=== PATIENT | female | born 1980 | race Caucasian/White ===

== ENCOUNTER 2018-03-16 14:58 | Emergency (ER) | payer OTHER ==
[2018-03-16] MEDS ORDERED: Sodium Chloride 0.9% 1,000 ML IV ONE (15:28)
[2018-03-16] MEDS ORDERED: Iopamidol 612 MG/ML 150 ML Bottle IVPUSH ONE (15:33)
[2018-03-16] MEDS ORDERED: Diatrizoate Meglumine/Diatrizoate Sodium 37% 120 ML Bottle PO ONE (15:33)
[2018-03-16] MEDS ORDERED: Sodium Chloride 0.9% 10 ML Syringe FLUSH ONE (15:33)
--- NOTE | 2018-03-16 15:36 | EDM.PDOC ---
ED HPI GENERAL MEDICAL PROBLEM - General Chief Complaint: Abdominal Pain Stated Complaint: ABDOMINAL PAIN Time Seen by Provider: 03/16/18 15:04 Source of Information: Reports: Patient History Limitations: Reports: No Limitations - History of Present Illness INITIAL COMMENTS - FREE TEXT/NARRATIVE: Patient is a 37-year-old patient from [facility] who presents to the ED complaining of right lower quadrant abdominal pain. Pain did start approximately 2 weeks and has progressively gotten worse. She's felt feverish, has had a poor appetite, and questions if this is not related to diverticulitis and/or appendicitis. 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 She has a history of diverticulitis that required resection of 10 inches of the sigmoid colon November 2016. She states she had similar symptoms at that point as well. She states there is no blood within her stool only with wiping. She states her rectum is quite sore due to excessive wiping. She's had a tubal ligation with no additional abdominal surgeries. Last menstrual cycle was 2.5 weeks ago. She has no history of kidney stones and/or ovarian cyst. She does have a history of STDs consisting of gonorrhea/chlamydia. She had gonorrhea upon admission to senior care. She was treated. She is not sexually active. She denies any abnormal vaginal discharge and/or bleeding. She has been taking Tylenol for discomfort. She placed herself on a clear liquid liquid diet with onset of symptoms. States the symptoms have progressively gotten worse over the past 2 days. She has a history of anxiety, GERD, diverticuli with diverticulitis. She's currently on no medications. She has a previous history of heavy alcohol use, narcotic use, smoking, and recreational drug use. 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 [No Known Home Meds] 03/16/18 [History] Past Medical History Gastrointestinal History: Reports: Diverticulosis Psychiatric History: Reports: Addiction, Anxiety, Depression Other Psychiatric History: substance abuse-alcohol and drugs - Past Surgical History HEENT Surgical History: Reports: Oral Surgery Female Surgical History: Reports: Tubal Ligation Social & Family History - Tobacco Use Smoking Status *Q: Former Smoker Used Tobacco, but Quit: Yes Month/Year Tobacco Last Used: 2 months ago - Caffeine Use Caffeine Use: Reports: Coffee, Soda, Tea - Recreational Drug Use Recreational Drug Use: Yes Other Recreational Drug Type: last used drugs in 1.5 yrs ago ED ROS GENERAL - Review of Systems Review Of Systems: See Below Constitutional: Reports: Fever, Chills, Malaise, Weakness, Decreased Appetite HEENT: Reports: No Symptoms Respiratory: Reports: No Symptoms Cardiovascular: Reports: No Symptoms GI/Abdominal: Reports: Abdominal Pain (Right lower quadrant), Constipation, Decreased Appetite, Flatus, Nausea. Denies: Black Stool, Bloody Stool, Diarrhea (Loose stools), Distension, Hematemesis, Hematochezia, Melena, Vomiting : Reports: No Symptoms Musculoskeletal: Reports: No Symptoms Neurological: Reports: No Symptoms ED EXAM, GI/ABD - Physical Exam Exam: See Below Exam Limited By: No Limitations General Appearance: Alert, WD/WN, No Apparent Distress Ears: Hearing Grossly Normal Nose: Normal Inspection Throat/Mouth: Normal Voice, No Airway Compromise Neck: Normal Inspection, Supple Respiratory/Chest: No Respiratory Distress, Lungs Clear, Normal Breath Sounds, No Accessory Muscle Use, Chest Non-Tender Cardiovascular: Normal Peripheral Pulses, Regular Rate, Rhythm GI/Abdominal Exam: Normal Bowel Sounds, Soft, No Organomegaly, No Distention, Tender (McBurney's point) (Female) Exam: Deferred. No: Vaginal Discharge Rectal (Female) Exam: Deferred, Other (Per patient pain to the rectum secondary to excessive wiping.) Back Exam: No: CVA Tenderness (L), CVA Tenderness (R) Neurological: Alert, Oriented, Normal Cognition, No Motor/Sensory Deficits Psychiatric: Normal Affect, Normal Mood Skin Exam: Warm, Dry, Intact, Normal Color, No Rash Course - Vital Signs Last Recorded V/S: Last Vital Signs Temp 98.6 F 03/16/18 15:04 Pulse 71 03/16/18 15:04 Resp 20 03/16/18 15:04 BP 172/89 H 03/16/18 15:04 Pulse Ox 99 03/16/18 15:04 - Orders/Labs/Meds Orders: Active Orders 24 hr Category Date Time Status Peripheral IV Care [RC] . DIRECTED Care 03/16/18 15:28 Active Abdomen Pelvis w Cont [CT] Stat Exams 03/16/18 15:28 Taken UA W/MICROSCOPIC [URIN] Stat Lab 03/16/18 15:33 Ordered Peripheral IV Insertion Adult [OM.PC] Routine Oth 03/16/18 15:28 Ordered Labs: Laboratory Tests 03/16/18 03/16/18 03/16/18 Range/Units 15:33 15:40 15:40 WBC 9.74 (3.98-10.04) K/mm3 RBC 4.78 (3.98-5.22) M/mm3 Hgb 14.4 (11.2-15.7) gm/L Hct 42.3 (34.1-44.9) % MCV 88.5 (79.4-94.8) fl MCH 30.1 (25.6-32.2) pg MCHC 34.0 (32.2-35.5) g/dl RDW Std Deviation 39.8 (36.4-46.3) fL Plt Count 278 (182-369) K/mm3 MPV 9.8 (9.4-12.3) fl Neutrophils % (Manual) 60 (40-60) % Band Neutrophils % 0 (0-10) % Lymphocytes % (Manual) 33 (20-40) % Atypical Lymphs % 0 % Monocytes % (Manual) 7 (2-10) % Eosinophils % (Manual) 0 L (0.7-5.8) % Basophils % (Manual) 0 L (0.1-1.2) Platelet Estimate Adequate Plt Morphology Comment Normal RBC Morph Comment Normal Sodium 137 (136-145) mEq/L Potassium 4.1 (3.5-5.1) mEq/L Chloride 103 (98-107) mEq/L Carbon Dioxide 28 (21-32) mEq/L Anion Gap 10.1 (5-15) BUN 9 (7-18) mg/dL Creatinine 0.9 (0.55-1.02) mg/dL Est Cr Clr Drug Dosing 70.80 mL/min Estimated GFR (MDRD) > 60 (>60) mL/min BUN/Creatinine Ratio 10.0 L (14-18) Glucose 78 (74-106) mg/dL Calcium 9.2 (8.5-10.1) mg/dL Total Bilirubin 0.6 (0.2-1.0) mg/dL AST 14 L (15-37) U/L ALT 20 (14-59) U/L Alkaline Phosphatase 38 L (46-116) U/L C-Reactive Protein < 0.2 (<1.0) mg/dL Total Protein 8.1 (6.4-8.2) g/dl Albumin 4.4 (3.4-5.0) g/dl Globulin 3.7 gm/dL Albumin/Globulin Ratio 1.2 (1-2) HCG, Qual (NEGATIVE) Urine Color Light yellow (Yellow) Urine Appearance Clear (Clear) Urine pH 7.5 (5.0-8.0) Ur Specific [place] 1.020 (1.005-1.030) Urine Protein Negative (Negative) Urine Glucose (UA) Negative (Negative) Urine Ketones Negative (Negative) Urine Occult Blood Negative (Negative) Urine Nitrite Negative (Negative) Urine Bilirubin Negative (Negative) Urine Urobilinogen 0.2 (0.2-1.0) Ur Leukocyte Esterase Negative (Negative) Urine RBC Not seen (0-5) /hpf Urine WBC 0-5 (0-5) /hpf Ur Epithelial Cells 0-5 (0-5) /hpf Urine Bacteria Not seen (FEW) /hpf Urine Mucus Not seen (FEW) /hpf 03/16/18 Range/Units 15:40 WBC (3.98-10.04) K/mm3 RBC (3.98-5.22) M/mm3 Hgb (11.2-15.7) gm/L Hct (34.1-44.9) % MCV (79.4-94.8) fl MCH (25.6-32.2) pg MCHC (32.2-35.5) g/dl RDW Std Deviation (36.4-46.3) fL Plt Count (182-369) K/mm3 MPV (9.4-12.3) fl Neutrophils % (Manual) (40-60) % Band Neutrophils % (0-10) % Lymphocytes % (Manual) (20-40) % Atypical Lymphs % % Monocytes % (Manual) (2-10) % Eosinophils % (Manual) (0.7-5.8) % Basophils % (Manual) (0.1-1.2) Platelet Estimate Plt Morphology Comment RBC Morph Comment Sodium (136-145) mEq/L Potassium (3.5-5.1) mEq/L Chloride (98-107) mEq/L Carbon Dioxide (21-32) mEq/L Anion Gap (5-15) BUN (7-18) mg/dL Creatinine (0.55-1.02) mg/dL Est Cr Clr Drug Dosing mL/min Estimated GFR (MDRD) (>60) mL/min BUN/Creatinine Ratio (14-18) Glucose (74-106) mg/dL Calcium (8.5-10.1) mg/dL Total Bilirubin (0.2-1.0) mg/dL AST (15-37) U/L ALT (14-59) U/L Alkaline Phosphatase (46-116) U/L C-Reactive Protein (<1.0) mg/dL Total Protein (6.4-8.2) g/dl Albumin (3.4-5.0) g/dl Globulin gm/dL Albumin/Globulin Ratio (1-2) HCG, Qual Negative (NEGATIVE) Urine Color (Yellow) Urine Appearance (Clear) Urine pH (5.0-8.0) Ur Specific [place] (1.005-1.030) Urine Protein (Negative) Urine Glucose (UA) (Negative) Urine Ketones (Negative) Urine Occult Blood (Negative) Urine Nitrite (Negative) Urine Bilirubin (Negative) Urine Urobilinogen (0.2-1.0) Ur Leukocyte Esterase (Negative) Urine RBC (0-5) /hpf Urine WBC (0-5) /hpf Ur Epithelial Cells (0-5) /hpf Urine Bacteria (FEW) /hpf Urine Mucus (FEW) /hpf Meds: Medications Discontinued Medications Generic Name Dose Route Start Last Admin Trade Name Freq PRN Reason Stop Dose Admin Diatrizoate Meglum/Diatrizoate Sod 90 ml 03/16/18 15:33 03/16/18 16:53 Gastrografin 37% PO 03/16/18 15:34 90 ml ONETIME ONE Administration Sodium Chloride 1,000 mls @ 250 mls/hr 03/16/18 15:28 03/16/18 15:40 Normal Saline IV 03/16/18 19:27 250 mls/hr ONETIME ONE Administration Ibuprofen 600 mg 03/16/18 17:48 03/16/18 17:52 Motrin PO 03/16/18 17:49 600 mg ONETIME ONE Administration Iopamidol 125 ml 03/16/18 15:33 03/16/18 16:53 Isovue-300 (61%) IVPUSH 03/16/18 15:34 125 ml ONETIME ONE Administration Sodium Chloride 10 ml 03/16/18 15:28 03/16/18 16:53 Saline Flush FLUSH 10 ml ASDIRECTED PRN Administration Keep Vein Open Sodium Chloride 10 ml 03/16/18 15:33 03/16/18 15:40 Saline Flush FLUSH 03/16/18 15:34 10 ml ONETIME ONE Administration - Re-Assessments/Exams Free Text/Narrative Re-Assessment/Exam: IV established with normal saline 250 mL per hour. Initial labs and studies ordered include: CBC, chem 14, CRP, UA, and hCG. I have ordered a CT of the abdomen and pelvis with IV and oral contrast. Patient has a history of diverticulitis to the sigmoid colon with resection. She states current symptoms are similar although the pain is located to the right side. Will rule out appendicitis. In addition she has no history of ovarian cyst and/ or kidney stones. 03/16/18 16:25 Labs reviewed: CBC essentially normal. CMP essentially normal. CRP <0.2. HCG Negative. UA negative. 03/16/18 17:46 CT abdomen and pelvis with IV/oral contrast impression: 2 cm corpus luteal cyst of the right ovary. Will discharge patient home with instructions as documented. Departure - Departure Time of Disposition: 17:50 Disposition: Home, Self-Care 01 Condition: Good Clinical Impression: Corpus luteum cyst of right ovary, Rectum pain - Discharge Information Instructions: Abdominal Pain, Adult, [id number], Ovarian Cyst, [id number] Referrals: Ludy Glez PA-C [Primary Care Provider] - Forms: ED Department Discharge Additional Instructions: CBC, chem Panel, CRP, and UA were essentially normal. CT of the abdomen and pelvis revealed a 2 cm corpus luteal cyst of the right ovary. Treatment will be Tylenol and ibuprofen in alternating fashion for pain. Follow-up with [facility] specialist the pain persist. Return to ED if patient develops any new or worsening symptoms. Apply the calmoseptine as needed to the rectum for rectal irritation. Minimize wiping. Utilize miralax 1 capful everyday with water/juice for constipation. Keep well hydrated. Increase fiber in diet including vegetables and fruits. - My Orders Last 24 Hours: My Active Orders 03/16/18 15:28 Peripheral IV Care [RC] . DIRECTED Abdomen Pelvis w Cont [CT] Stat Peripheral IV Insertion Adult [OM.PC] Routine 03/16/18 15:33 UA W/MICROSCOPIC [URIN] Stat - Assessment/Plan Last 24 Hours: My Active Orders 03/16/18 15:28 Peripheral IV Care [RC] . DIRECTED Abdomen Pelvis w Cont [CT] Stat Peripheral IV Insertion Adult [OM.PC] Routine 03/16/18 15:33 UA W/MICROSCOPIC [URIN] Stat
[2018-03-16] MEDS: Sodium Chloride 0.9% 10 ML Syringe FLUSH PRN ×2 (15:40→16:53)
[2018-03-16] MEDS ORDERED: Ibuprofen 600 MG Tab PO ONE (17:48)
--- NOTE | 2018-03-17 08:07 | CT ---
CT abdomen and pelvis Technique: Multiple axial sections were obtained from above the dome of the diaphragm inferiorly through the pubic symphysis. Intravenous and oral contrast was utilized. Delayed images were obtained through the bladder. Findings: Visualized lung bases are clear. Liver shows no focal parenchymal abnormality. Spleen appears within normal limits. Adrenal glands show no nodule. Gallbladder contains no calcified gallstones. Kidneys show symmetric contrast enhancement without hydronephrosis or mass. Aorta shows no aneurysmal dilatation. No retroperitoneal adenopathy or mesenteric abnormalities are seen. Pancreas appears normal. No mesenteric abnormalities are seen. Appendix is seen which is normal. No free fluid or inflammatory change is seen. No pelvic mass is noted. Delayed images show contrast within the distal ureters and within the bladder. Bone window settings show disc space narrowing and vacuum phenomena within the L5-S1 disc. Impression: 1. Incidental findings. Nothing acute is seen on CT study of the abdomen and pelvis. Diagnostic code #2 I agree with preliminary report issued by [facility] ([facility] preliminary report dictated on 03/16/18, 6:38 PM Central Time)
== END 2018-03-16 17:58 | disposition home or self-care (01) ==
LOC: JD.ED 14:58
DX: N83.11 Corpus luteum cyst of right ovary (principal); K62.89 Other specified diseases of anus and rectum; Z87.891 Personal history of nicotine dependence
CPT/HCPCS: 36415; 74177; 80053; 81001; 84703; 85025; 86140; 96360; 96361; 99284; A9270; J7040; J7050; Q9963; Q9967